=== PATIENT | male | born 1960 | race Hispanic/Latino ===

== ENCOUNTER 2020-03-20 08:48 | Outpatient (CLI) | payer OTHER ==
--- NOTE | 2020-03-20 10:57 | RAD ---
RIGHT KNEE 4 VIEWS: Date: 03/20/2020 HISTORY: Knee pain. FINDINGS: Medial and lateral joint spaces appear normal. Minimal degenerative change. Minimal spurring from the condyles and patella. Fullness in the suprapatellar region suggests small joint effusion. There is n o osseous abnormality identified. IMPRESSION: 1. Very mild degenerative change. 2. Question small joint effusion. POS: AGW
== END 2020-03-20 08:49 | disposition home or self-care (01) ==
LOC: MADRAD 08:48
PROVIDERS: ATTEND Family Medicine
DX: M25.561 Pain in right knee (principal); M17.11 Unilateral primary osteoarthritis, right knee

== ENCOUNTER 2021-11-21 12:11 | Outpatient (CLI) | payer SELFPAY | END 2021-11-21 12:12 | disposition home or self-care (01) | LOC: MADRAD 12:11 | PROVIDERS: ATTEND Family Medicine | DX: M17.9 Osteoarthritis of knee, unspecified (principal) ==

== ENCOUNTER 2024-06-16 22:17 | Emergency (ER) | payer SELFPAY ==
[2024-06-16] MEDS ORDERED: Loratadine 10 MG TAB ONE (22:34)
[2024-06-16] MEDS ORDERED: methylPREDNISolone Acetate 80 mg (1 mL) VIAL ONE (22:34)
== END 2024-06-16 22:57 | disposition home or self-care (01) ==
LOC: MADERS 22:17
DX: L25.5 Unspecified contact dermatitis due to plants, except food (principal); I10 Essential (primary) hypertension; F17.210 Nicotine dependence, cigarettes, uncomplicated
CPT/HCPCS: 96372; 99283; J1040

== ENCOUNTER 2024-11-14 19:57 | Emergency (ER) | payer MEDICAID, OTHER, SELFPAY ==
[2024-11-14] MEDS ORDERED: Mineral Oil ENEMA ONE (23:52)
== END 2024-11-15 02:15 | disposition home or self-care (01) ==
LOC: MADERS 19:57
DX: K56.41 Fecal impaction (principal); I10 Essential (primary) hypertension; F17.210 Nicotine dependence, cigarettes, uncomplicated
CPT/HCPCS: 99283

== ENCOUNTER 2024-12-13 14:08 | Emergency (ER) | payer MEDICARE, OTHER ==
[2024-12-13] MEDS ORDERED: Ibuprofen 800 MG TAB ONE (15:32)
== END 2024-12-13 15:41 | disposition home or self-care (01) ==
LOC: MADERS 14:08
DX: S22.41XA Multiple fractures of ribs, right side, initial encounter for closed fracture (principal); I10 Essential (primary) hypertension; F17.210 Nicotine dependence, cigarettes, uncomplicated; V28.09XA Other motorcycle driver injured in noncollision transport accident in nontraffic accident, initial encounter; Y93.I9 Activity, other involving external motion; Y92.096 Garden or yard of other non-institutional residence as the place of occurrence of the external cause
CPT/HCPCS: 71046